=== PATIENT | female | born 1965 | race Caucasian/White ===

== ENCOUNTER 2018-07-02 10:39 | Emergency (ER) | payer BC, SELFPAY ==
[2018-07-02] MEDS ORDERED: IBUPROFEN 400 MG TAB ONE (11:17)
--- NOTE | 2018-07-02 11:35 | RAD REPORT ---
EXAM DESCRIPTION: CT - CTHCSPWOC - 07/02/2018 11:24 am CLINICAL HISTORY: Trauma, head and neck injury. PAIN COMPARISON: No comparisons TECHNIQUE: Axial 5 mm thick images of the head were obtained. Axial 2 mm thick images of the cervical spine were obtained with sagittal and coronal reconstruction images generated and reviewed. All CT scans are performed using dose optimization technique as appropriate and may include automated exposure control or mA/KV adjustment according to patient size. FINDINGS: CT HEAD WITHOUT CONTRAST: No acute hemorrhage, hydrocephalus or extra-axial collection is identified.No areas of brain edema or midline shift. The paranasal sinuses and mastoids are clear.The calvarium is intact. CT CERVICAL SPINE WITHOUT CONTRAST: No fracture or subluxation.Mild lower cervical spondylosis.No prevertebral soft tissues swelling is i dentified. IMPRESSION: No acute intracranial or cervical spine findings.
--- NOTE | 2018-07-02 12:06 | EDPHYS ---
Physician Documentation [facility] Name: Ayleen Castro Age: 52 yrs Sex: Female : 1965 Arrival Date: 07/02/2018 Time: 10:42 Bed 20 Private MD: ED Physician Darius Garcia HPI: 07/02 11:08 This 52 yrs old Female presents to ER via Ambulatory with complaints of Fall silvano Injury. 11:08 Details of fall: The patient fell from an upright position, while walking. Onset: The silvano symptoms/episode began/occurred just prior to arrival. Associated injuries: The patient sustained injury to the head, neck injury, injury to the low back, lateral aspect of right hand, decreased range of motion, painful injury. Severity of symptoms: At their worst the symptoms were moderate, in the emergency department the symptoms have resolved. The patient has not experienced similar symptoms in the past. 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 - Social history:: Smoking status: Patient/guardian denies using tobacco. - Ebola Screening: : No symptoms or risks identified at this time. - Family history:: not pertinent. ROS: 11:08 Constitutional: Negative for fever, chills, and weight loss, Eyes: Negative for injury, silvano pain, redness, and discharge, ENT: Negative for injury, pain, and discharge, Cardiovascular: Negative for chest pain, palpitations, and edema, Respiratory: Negative for shortness of breath, cough, wheezing, and pleuritic chest pain, Abdomen/GI: Negative for abdominal pain, nausea, vomiting, diarrhea, and constipation, Back: Negative for injury and pain, : Negative for injury, bleeding, discharge, and swelling, MS/Extremity: Negative for injury and deformity, Skin: Negative for injury, rash, and discoloration, Neuro: Negative for headache, weakness, numbness, tingling, and seizure, Psych: Negative for depression, anxiety, suicide ideation, homicidal ideation, and hallucinations, Allergy/Immunology: Negative for hives, rash, and allergies, Endocrine: Negative for neck swelling, polydipsia, polyuria, polyphagia, and marked weight changes, Hematologic/Lymphatic: Negative for swollen nodes, abnormal bleeding, and unusual bruising. 11:08 Neck: Positive for pain with movement, pain at rest. 11:08 Back: Positive for decreased range of motion, pain at rest, of the lumbar area. Exam: 11:08 Constitutional: This is a well developed, well nourished patient who is awake, alert, silvano and in no acute distress. Head/Face: Normocephalic, atraumatic. Eyes: Pupils equal round and reactive to light, extra-ocular motions intact. Lids and lashes normal. Conjunctiva and sclera are non-icteric and not injected. Cornea within normal limits. Periorbital areas with no swelling, redness, or edema. ENT: Nares patent. No nasal discharge, no septal abnormalities noted. Tympanic membranes are normal and external auditory canals are clear. Oropharynx with no redness, swelling, or masses, exudates, or evidence of obstruction, uvula midline. Mucous membranes moist. Chest/axilla: Normal chest wall appearance and motion. Nontender with no deformity. No lesions are appreciated. Cardiovascular: Regular rate and rhythm with a normal S1 and S2. No gallops, murmurs, or rubs. Normal PMI, no JVD. No pulse deficits. Respiratory: Lungs have equal breath sounds bilaterally, clear to auscultation and percussion. No rales, rhonchi or wheezes noted. No increased work of breathing, no retractions or nasal flaring. Abdomen/GI: Soft, non-tender, with normal bowel sounds. No distension or tympany. No guarding or rebound. No evidence of tenderness throughout. Back: No spinal tenderness. No costovertebral tenderness. Full range of motion. Female : Normal external genitalia. Skin: Warm, dry with normal turgor. Normal color with no rashes, no lesions, and no evidence of cellulitis. Neuro: Awake and alert, GCS 15, oriented to person, place, time, and situation. Cranial nerves II-XII grossly intact. Motor strength 5/5 in all extremities. Sensory grossly intact. Cerebellar exam normal. Normal gait. Psych: Awake, alert, with orientation to person, place and time. Behavior, mood, and affect are within normal limits. 11:08 Neck: External neck: is normal, C-spine: pain with rom, no point tenderness. 11:08 Back: pain, is absent, ROM is painful, normal spinal alignment noted, CVA tenderness, is absent, vertebral tenderness, is not appreciated, muscle spasm, is appreciated in the left low back and right low back, Straight leg raises: of both lower extremities does not illicit pain. Vital Signs: 10:53 BP 123 / 77; Pulse 74; Resp 16; Temp 97.8; Pulse Ox 97% on R/A; Weight 57.15 kg; Height ph 5 ft. 2 in. (157.48 cm); Pain 5/10; 11:30 BP 131 / 79; Pulse 68; Resp 18; Pulse Ox 99% on R/A; rb1 12:30 BP 146 / 86; Pulse 60; Resp 17; Pulse Ox 100% ; rb1 10:53 Body Mass Index 23.05 (57.15 kg, 157.48 cm) ph MDM: 10:45 Patient medically screened. [facility] 11:14 Data reviewed: vital signs, nurses notes, lab test result(s), radiologic studies, CT [facility] scan, plain films. 07/02 11:16 Order name: Urine Dipstick--Ancillary (enter results) 07/02 11:17 Order name: Urine Dipstick-Ancillary [facility] 07/02 11:08 Order name: CT Head C Spine; Complete Time: 12:04 [facility] 07/02 11:08 Order name: Hand Right 3 View XRAY [facility] 07/02 11:08 Order name: Lumbar Spine (3 Views) XRAY [facility] 07/02 12:05 Order name: Urine Culture [facility] 07/02 11:08 Order name: Urine Dipstick-Ancillary (obtain specimen); Complete Time: 11:17 [facility] Administered Medications: 11:17 Drug: Motrin 400 mg Route: PO; rb1 11:45 Follow up: Response: No adverse reaction rb1 12:27 Drug: Bactrim (160 mg-800 mg (DS) 1 tablet Route: PO; rb1 13:00 Follow up: Response: No adverse reaction rb1 Disposition: 07/02/18 12:06 Discharged to Home. Impression: Fall due to bumping against object, Superficial injury of head, Strain of muscle, fascia and tendon at neck level, Low back pain, Spondylolysis, cervical region, Urinary tract infection, site not specified. - Condition is Stable. - Discharge Instructions: Back Pain, Adult, Chronic Back Pain, Musculoskeletal Pain, Urinary Tract Infection, Adult, Back Injury Prevention, [id number], Cervical Sprain, [id number], Back Pain, Adult, [id number]. - Prescriptions for Motrin IB 200 mg Oral Tablet - take 2 tablet by ORAL route every 6 hours As needed as needed with food; 30 tablet. Bactrim DS 800- 160 mg Oral Tablet - take 1 tablet by ORAL route every 12 hours for 7 days; 14 tablet. - Medication Reconciliation Form, Thank You Letter, Antibiotic Education, Prescription Opioid Use form. - Follow up: Private Physician; When: 2 - 3 days; Reason: Recheck today's complaints, Continuance of care, Re-evaluation by your physician. - Problem is new. - Symptoms have improved. Signatures: Dispatcher [employer] EDDarius Rodriguez MD MD cha Hall, Patricia, RN RN Lillie Forbes RN RN rb1 Corrections: (The following items were deleted from the chart) 13:14 12:06 07/02/2018 12:06 Discharged to Home. Impression: Fall due to bumping against rb1 object; Superficial injury of head; Strain of muscle, fascia and tendon at neck level; Low back pain; Spondylolysis, cervical region; Urinary tract infection, site not specified. Condition is Stable. Discharge Instructions: Back Pain, Adult, Chronic Back Pain, Musculoskeletal Pain, Back Injury Prevention, [id number], Cervical Sprain, Ydow-tm-Oais, Back Pain, Adult, [id number]-[id number]. Prescriptions for Motrin IB 200 mg Oral Tablet - take 2 tablet by ORAL route every 6 hours As needed as needed with food; 30 tablet. and Forms are Medication Reconciliation Form, Thank You Letter, Antibiotic Education, Prescription Opioid Use. Follow up: Private Physician; When: 2 - 3 days; Reason: Recheck today's complaints, Continuance of care, Re-evaluation by your physician. Problem is new. Symptoms have improved. silvano
--- NOTE | 2018-07-02 12:06 | ER ---
Nurse's Notes [facility] Name: Ayleen Castro Age: 52 yrs Sex: Female : 1965 Arrival Date: 07/02/2018 Time: 10:42 Bed 20 Private MD: Diagnosis: Fall due to bumping against object;Superficial injury of head;Strain of muscle, fascia and tendon at neck level;Low back pain;Spondylolysis, cervical region;Urinary tract infection, site not specified Presentation: 07/02 10:51 Presenting complaint: Patient states: " I slipped and fell at work yesterday, I am ph hurting in the back of my head, my shoulders, my lower back, my R wrist and my R thumb." Pt denies LOC. Transition of care: patient was not received from another setting of care. Onset of symptoms was July 02, 2018. Risk Assessment: Do you want to hurt yourself or someone else? Patient reports no desire to harm self or others. Initial Sepsis Screen: Does the patient meet any 2 criteria? No. Patient's initial sepsis screen is negative. Does the patient have a suspected source of infection? No. Patient's initial sepsis screen is negative. Care prior to arrival: None. 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 - Social history:: Smoking status: Patient/guardian denies using tobacco. - Ebola Screening: : No symptoms or risks identified at this time. - Family history:: not pertinent. Screenin:47 Abuse screen: Denies threats or abuse. Nutritional screening: No deficits noted. rb1 Tuberculosis screening: No symptoms or risk factors identified. Fall Risk Fall in past 12 months (25 points). No secondary diagnosis (0 pts). No IV (0 pts). Ambulatory Aid- None/Bed Rest/Nurse Assist (0 pts). Gait- Normal/Bed Rest/Wheelchair (0 pts) Mental Status- Oriented to own ability (0 pts). Total Salazar Fall Scale indicates Low Risk Score (25-44 pts). Fall prevention measures have been instituted. Side Rails Up X 2 Placed close to Nursing Station 1:1 attendant Assigned to Pt. Frequent Obs/Assesments occuring As available Patient and Family Educated on Fall Prevention Program and strategies. Assessment: 10:47 General: Appears in no apparent distress. comfortable, Behavior is calm, cooperative, rb1 Pt. fell yesterday at work and hurt her back, head, and right thumb, and left hip.. Pain: Complains of pain in back, head, right thumb, and left hip Pain currently is 5 out of 10 on a pain scale. Pain began 1 day ago. Neuro: Level of Consciousness is awake, alert, obeys commands, Oriented to person, place, time, situation. Cardiovascular: Capillary refill < 3 seconds is brisk in bilateral fingers. Respiratory: Airway is patent Respiratory effort is even, unlabored, Respiratory pattern is regular, symmetrical. GI: No signs and/or symptoms were reported involving the gastrointestinal system. : No signs and/or symptoms were reported regarding the genitourinary system. Derm: Skin is pink, warm \\T\\ dry. Musculoskeletal: Range of motion: intact in all extremities. 11:47 Reassessment: Patient appears in no apparent distress at this time. No changes from rb1 previously documented assessment. 12:10 Reassessment: Discharge pending due to waiting for test results. rb1 12:45 Reassessment: Patient appears in no apparent distress at this time. Patient and/or rb1 family updated on plan of care and expected duration. Pain level reassessed. Patient is alert, oriented x 3, equal unlabored respirations, skin warm/dry/pink. Vital Signs: 10:53 BP 123 / 77; Pulse 74; Resp 16; Temp 97.8; Pulse Ox 97% on R/A; Weight 57.15 kg; Height ph 5 ft. 2 in. (157.48 cm); Pain 5/10; 11:30 BP 131 / 79; Pulse 68; Resp 18; Pulse Ox 99% on R/A; rb1 12:30 BP 146 / 86; Pulse 60; Resp 17; Pulse Ox 100% ; rb1 10:53 Body Mass Index 23.05 (57.15 kg, 157.48 cm) ph ED Course: 10:42 Patient arrived in ED. sb2 10:45 Darius Gracia MD is Attending Physician. [facility] 10:46 Lillie Gonzalez, RN is Primary Nurse. rb1 10:47 Patient has correct armband on for positive identification. Bed in low position. Call rb1 light in reach. Side rails up X 1. Pulse ox on. NIBP on. 10:53 Triage completed. ph 10:55 Arm band placed on. ph 11:24 CT Head C Spine In Process Unspecified. EDMS 11:24 CT completed. Patient tolerated procedure well. Patient moved to CT via stretcher. sj Patient moved back from CT. 12:12 X-ray completed. Patient tolerated procedure well. Patient moved to radiology via jb2 wheelchair. Patient moved back from radiology. 12:13 Hand Right 3 View XRAY In Process Unspecified. EDMS 12:13 Lumbar Spine (3 Views) XRAY In Process Unspecified. EDMS 13:05 No provider procedures requiring assistance completed. Patient did not have IV access rb1 during this emergency room visit. Administered Medications: 11:17 Drug: Motrin 400 mg Route: PO; rb1 11:45 Follow up: Response: No adverse reaction rb1 12:27 Drug: Bactrim (160 mg-800 mg (DS) 1 tablet Route: PO; rb1 13:00 Follow up: Response: No adverse reaction rb1 Outcome: 12:06 Discharge ordered by . [facility] 13:05 Discharged to home ambulatory, with friend. rb1 13:05 Condition: stable 13:05 Discharge instructions given to patient, Instructed on discharge instructions, follow up and referral plans. medication usage, Demonstrated understanding of instructions, follow-up care, medications, Prescriptions given X 2. 13:14 Patient left the ED. rb1 Signatures: Dispatcher [employer] EDLA Darius Garcia MD MD cha Buechter, Jesse jb2 Karishma Rocha Patricia, RN RN Lillie Gonzalez, RN RN [facility] Aviva Ann sb2
--- NOTE | 2018-07-02 12:26 | RAD REPORT ---
EXAM DESCRIPTION: RAD - Hand Right 3 View - 07/02/2018 12:17 pm CLINICAL HISTORY: PAIN COMPARISON: No comparisons FINDINGS: Mild radiocarpal joint arthritic changes are seen. No acute fracture or dislocation is pre sent.
[2018-07-02] MEDS ORDERED: SMZ./TMP. 800/160 MG TABLET ONE (12:28)
--- NOTE | 2018-07-02 12:30 | RAD REPORT ---
EXAM DESCRIPTION: RAD - Lumbar Spine 3 Views - 07/02/2018 12:20 pm CLINICAL HISTORY: PAIN Radiculopathy COMPARISON: LUMBAR SPINE 3 VIEWS dated 05/21/2014 FINDINGS: Vertebral body heights appear maintained. No compression fracture noted. Disc thinning is seen at L5-S1 with 3-4 mm retrolisthesis present. Mild endplate osteophyte is present throughout all visualized levels of the lumbar spine. IMPRESSION: Mild to moderate lower lumbar spondylosis. No acute lumbar spine abnormality.
[2018-07-02 16:01] LABS: Urine Blood TRACE (NEG); Urine Glucose NEGATIVE (NEG); Urine Protein NEGATIVE (NEG)
== END 2018-07-02 13:14 | disposition home or self-care (01) ==
LOC: ER 10:39
DX: S00.90XA Unspecified superficial injury of unspecified part of head, initial encounter (principal); S16.1XXA Strain of muscle, fascia and tendon at neck level, initial encounter; M47.892 Other spondylosis, cervical region; N39.0 Urinary tract infection, site not specified; F32.9 Major depressive disorder, single episode, unspecified; W18.39XA Other fall on same level, initial encounter; Y93.01 Activity, walking, marching and hiking; Y92.9 Unspecified place or not applicable
CPT/HCPCS: 70450; 72100; 72125; 81003; 87086; 87088; 99284

== ENCOUNTER 2020-01-05 19:42 | Observation (INO) | payer BC ==
[2020-01-05] MEDS ORDERED: MORPHINE 2 MG/ML SYR ONE (20:12)
[2020-01-05] MEDS ORDERED: ONDANSETRON 4 MG/2 ML VIAL ONE (20:12)
[2020-01-05] MEDS ORDERED: ASPIRIN 81 MG CHEWABLE TABLET ONE (20:12)
[2020-01-05] MEDS ORDERED: FAMOTIDINE 20 MG/2 ML VIAL IV ONE (20:12)
[2020-01-05] MEDS ORDERED: NA CHLORIDE 0.9% 2,000 ML ONE (20:12)
[2020-01-05 20:36] LABS: Absolute Lymphocytes (CBC) 2.3 K/uL (0.7-4.9); Basophils % 0.9 % (0-1.3); Hematocrit 40.8 % (36.0-45.0); Lymphocytes % 32.6 % (15.3-44.8); MPV 8.3 fL (7.6-11.3); RBC Red Blood Cell Count 4.71 M/uL (3.86-4.86)
[2020-01-05 20:42] LABS: Protime INR 0.98
[2020-01-05 20:43] LABS: Urine Blood TRACE (NEG); Urine Glucose NEGATIVE (NEG); Urine Protein NEGATIVE (NEG); Urine Specific Gravity 1.025 (1.005-1.030); Urine pH 5.5 (5.0-7.0)
--- NOTE | 2020-01-05 20:46 | RAD REPORT ---
EXAM DESCRIPTION: RAD - Chest Single View - 01/05/2020 8:41 pm CLINICAL HISTORY: CHEST PAIN Chest pain. COMPARISON: No comparisons FINDINGS: Portable technique limits examination quality. The lungs are grossly clear. The heart is normal in size. No displaced fractures. IMPRESSION: No acute intrathoracic process suspected.
[2020-01-05 20:55] LABS: ALT/SGPT 26 U/L (12-78); AST/SGOT 18 U/L (15-37); Albumin 3.9 g/dL (3.4-5.0); Alkaline Phosphatase 83 U/L (45-117); BUN Blood Urea Nitrogen 17 mg/dL (7-18); Bicarbonate 28 mmol/L (21-32); Bilirubin Direct < 0.1 mg/dL (0-0.2); Bilirubin Total 0.3 mg/dL (0.2-1.0); Glucose Level 91 mg/dL (74-106); Lipase 91 U/L (73-393); Magnesium 2.4 mg/dL (1.8-2.4); NT PRO-BNP 42 pg/mL (<125); Potassium 3.7 mmol/L (3.5-5.1); Protein, Total 7.7 g/dL (6.4-8.2); Sodium Level 139 mmol/L (136-145); Troponin (Emerg Dept Use Only) < 0.02 ng/mL (0.0-0.045)
--- NOTE | 2020-01-05 21:01 | ER ---
Nurse's Notes [facility] Name: Ayleen Castro Age: 54 yrs Sex: Female : 1965 Arrival Date: 01/05/2020 Time: 19:45 Bed 3 Private MD: Diagnosis: Chest pain, unspecified;Dyspnea;Cholelithiasis Presentation: 01/05 19:50 Acuity: VARGAS 2 sg 19:50 Presenting complaint: Patient states: Midsternal CP that began 2-4 hours ago while sg cooking dinner, reports pain is radiating to mid upper back, described as worse pain she has had, reports nausea with dizziness upon standing. Transition of care: patient was not received from another setting of care. Onset of symptoms was January 05, 2020. Risk Assessment: Do you want to hurt yourself or someone else? Patient reports no desire to harm self or others. Initial Sepsis Screen: Does the patient meet any 2 criteria? No. Patient's initial sepsis screen is negative. Does the patient have a suspected source of infection? No. Patient's initial sepsis screen is negative. Care prior to arrival: None. 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 - Coronavirus screen:: The patient has NOT traveled to [place] in the past 14 days. The patient has NOT had contact with known/suspected case of Coronavirus?. - Social history:: Smoking status: Patient denies any tobacco usage or history of. - Family history:: not pertinent. - Ebola Screening: : Patient negative for fever greater than or equal to 101.5 degrees Fahrenheit, and additional compatible Ebola Virus Disease symptoms Patient denies exposure to infectious person Patient denies travel to an Ebola-affected area in the 21 days before illness onset No symptoms or risks identified at this time. Screenin:22 Abuse screen: Denies threats or abuse. Denies injuries from another. Nutritional rv screening: No deficits noted. Tuberculosis screening: No symptoms or risk factors identified. Fall Risk None identified. Assessment: 20:19 General: Appears in no apparent distress. uncomfortable, Behavior is calm, cooperative. rv Pain:. Neuro: Level of Consciousness is awake, alert, obeys commands, Oriented to person, place, time, situation. Cardiovascular: Patient's skin is warm and dry. Respiratory: Airway is patent. GI: No signs and/or symptoms were reported involving the gastrointestinal system. : No signs and/or symptoms were reported regarding the genitourinary system. EENT: No signs and/or symptoms were reported regarding the EENT system. Derm: Skin is intact. Musculoskeletal: No signs and/or symptoms reported regarding the musculoskeletal system. 20:23 Pain: Complains of pain in chest Pain radiates to NECK Pain currently is 4 out of 10 on rv a pain scale. Quality of pain is described as pressure, Pain began suddenly. 22:30 Reassessment: Patient appears in no apparent distress at this time. Patient and/or rv family updated on plan of care and expected duration. Pain level reassessed. Patient is alert, oriented x 3, equal unlabored respirations, skin warm/dry/pink. Patient states feeling better. 22:30 Reassessment: Patient appears in no apparent distress at this time. Patient and/or rv family updated on plan of care and expected duration. Pain level reassessed. Patient is alert, oriented x 3, equal unlabored respirations, skin warm/dry/pink. DR SHAW TALKED TO THE PATIENT AND EXPLAINED THE TEST RESULTS AND PLAN OF CARE. PATIENT AGREED TO BE ADMITTED. ALER AND ORIENTED UPON TRANSFER. IV IS PATENT AND IS FLUSHING FREELY WITHOUT SIGNS OF INFILTRATION. Vital Signs: 19:50 BP 147 / 98; Pulse 98; Resp 18; Temp 97.7; Pulse Ox 100% on R/A; sg 21:00 BP 157 / 90; Pulse 92; Resp 17 S; Pulse Ox 97% on R/A; ca1 21:01 Weight 68.04 kg (R); rv 22:00 BP 141 / 80; Pulse 71; Resp 17; Pulse Ox 100% on R/A; rv 22:30 BP 131 / 81; Pulse 68; Resp 16; Pulse Ox 97% on R/A; rv 23:00 BP 118 / 73; Pulse 68; Resp 17; Pulse Ox 97% on R/A; rv 23:30 BP 110 / 91; Pulse 66; Resp 18; Pulse Ox 99% on R/A; rv ED Course: 19:45 Patient arrived in ED. jg7 19:49 EKG done, by ED staff, reviewed by Darius Shaw MD. sg 19:50 Triage completed. sg 19:50 Arm band placed on. sg 19:58 Darius Shaw MD is Attending Physician. silvano 20:04 Reed Kinney RN is Primary Nurse. rv 20:22 Patient has correct armband on for positive identification. Placed in gown. Bed in low rv position. Call light in reach. Side rails up X 1. Adult w/ patient. monitoring specialist on. Pulse ox on. NIBP on. 20:22 Inserted saline lock: 20 gauge in right antecubital area, using aseptic technique. rv Blood collected. BY [employer]. Patient maintains SpO2 saturation greater than 95% on room air. 20:59 Santy Bynum MD is Hospitalizing Provider. silvano 22:37 CT Aorta for Dissection In Process Unspecified. EDMS 22:50 CT Head Brain wo Cont In Process Unspecified. EDMS 23:47 No provider procedures requiring assistance completed. Patient admitted, IV remains in rv place. Administered Medications: 20:31 Drug: NS 0.9% 500 ml Route: IV; Rate: bolus; Site: right antecubital; rv 23:46 Follow up: IV Status: Completed infusion; IV Intake: 500ml rv 20:31 Drug: NS 0.9% 1000 ml Route: IV; Rate: 125 ml/hr; Site: right antecubital; rv 23:45 Follow up: IV Status: Completed infusion rv 20:31 Drug: morphine 2 mg {Note: RASS 0.} Route: IVP; Site: right antecubital; rv 23:45 Follow up: Response: No adverse reaction; Marked relief of symptoms; Pain is decreased; rv RASS: Alert and Calm (0) 20:31 Drug: Zofran 4 mg Route: IVP; Site: right antecubital; rv 23:45 Follow up: Response: No adverse reaction rv 20:31 Drug: Pepcid 20 mg Route: IVP; Site: right antecubital; rv 23:45 Follow up: Response: No adverse reaction rv 20:31 Drug: Aspirin 81 mg Route: PO; rv 23:45 Follow up: Response: No adverse reaction rv 21:14 Drug: Lopressor (metoprolol TARTRATE) 50 mg Route: PO; rv 23:44 Follow up: Response: No adverse reaction; Blood pressure is lowered rv 22:06 Drug: Rocephin 1 grams Route: IV; Rate: per protocol; Site: right antecubital; rv 22:26 Follow up: IV Status: Completed infusion rv 22:26 Drug: Lovenox 1 mg/kg Route: Sub-Q; Site: abdomen; rv 23:44 Follow up: Response: No adverse reaction rv Intake: 23:46 IV: 500ml; Total: 500ml. rv Outcome: 21:00 Decision to Hospitalize by Provider. silvano 23:47 Admitted to Med/surg accompanied by nurse, via wheelchair, room 212, with chart, Report rv called to [facility] HALE 23:47 Condition: good 23:47 Discharge instructions given to patient, family, Instructed on the need for admit, Demonstrated understanding of instructions. 23:47 Patient left the ED. rv Signatures: Dispatcher [employer] EDMS Johnathan Ron RN Darius Almanza MD MD cha Vicente, Ronaldo RN Ayleen Angulo RN Vicky Ordaz [id number] Corrections: (The following items were deleted from the chart) 20:01 07:49 EKG done, by ED staff, reviewed by Darius lentz 20:30 20:22 Inserted saline lock: 22 gauge in right antecubital area, using aseptic rv technique. Blood collected. BY [employer] rv
--- NOTE | 2020-01-05 21:02 | EDPHYS ---
Physician Documentation [facility] Name: Ayleen Castro Age: 54 yrs Sex: Female : 1965 Arrival Date: 01/05/2020 Time: 19:45 Bed 3 Private MD: ED Physician Darius Garcia HPI: 01/05 20:27 This 54 yrs old Female presents to ER via Ambulatory with complaints of Chest silvano Pain. 20:27 The patient or guardian reports chest pain that is located primarily in the substernal silvano area, anterior chest wall, bilaterally. Onset: just prior to arrival. The pain radiates to back. Associated signs and symptoms: Pertinent positives: lightheadedness, nausea, shortness of breath. The chest pain is described as a heaviness, a pressure. Modifying factors: The symptoms are alleviated by nothing. the symptoms are aggravated by nothing. Severity of pain: At its worst the pain was moderate in the emergency department the pain is unchanged. The patient has experienced similar episodes in the past, several times. 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 - Coronavirus screen:: The patient has NOT traveled to [place] in the past 14 days. The patient has NOT had contact with known/suspected case of Coronavirus?. - Social history:: Smoking status: Patient denies any tobacco usage or history of. - Family history:: not pertinent. - Ebola Screening: : Patient negative for fever greater than or equal to 101.5 degrees Fahrenheit, and additional compatible Ebola Virus Disease symptoms Patient denies exposure to infectious person Patient denies travel to an Ebola-affected area in the 21 days before illness onset No symptoms or risks identified at this time. ROS: 20:27 Constitutional: Negative for fever, chills, and weight loss, Eyes: Negative for injury, silvano pain, redness, and discharge, ENT: Negative for injury, pain, and discharge, Neck: Negative for injury, pain, and swelling, Respiratory: Negative for shortness of breath, cough, wheezing, and pleuritic chest pain, Abdomen/GI: Negative for abdominal pain, nausea, vomiting, diarrhea, and constipation, Back: Negative for injury and pain, : Negative for injury, bleeding, discharge, and swelling, MS/Extremity: Negative for injury and deformity, Skin: Negative for injury, rash, and discoloration, Neuro: Negative for headache, weakness, numbness, tingling, and seizure, Psych: Negative for depression, anxiety, suicide ideation, homicidal ideation, and hallucinations, Allergy/Immunology: Negative for hives, rash, and allergies, Endocrine: Negative for neck swelling, polydipsia, polyuria, polyphagia, and marked weight changes, Hematologic/Lymphatic: Negative for swollen nodes, abnormal bleeding, and unusual bruising. 20:27 Cardiovascular: Positive for chest pain, of the chest. Exam: 20:27 Constitutional: This is a well developed, well nourished patient who is awake, alert, silvano and in no acute distress. Head/Face: Normocephalic, atraumatic. Eyes: Pupils equal round and reactive to light, extra-ocular motions intact. Lids and lashes normal. Conjunctiva and sclera are non-icteric and not injected. Cornea within normal limits. Periorbital areas with no swelling, redness, or edema. ENT: Nares patent. No nasal discharge, no septal abnormalities noted. Tympanic membranes are normal and external auditory canals are clear. Oropharynx with no redness, swelling, or masses, exudates, or evidence of obstruction, uvula midline. Mucous membranes moist. Neck: Trachea midline, no thyromegaly or masses palpated, and no cervical lymphadenopathy. Supple, full range of motion without nuchal rigidity, or vertebral point tenderness. No Meningismus. Chest/axilla: Normal chest wall appearance and motion. Nontender with no deformity. No lesions are appreciated. Respiratory: Lungs have equal breath sounds bilaterally, clear to auscultation and percussion. No rales, rhonchi or wheezes noted. No increased work of breathing, no retractions or nasal flaring. Abdomen/GI: Soft, non-tender, with normal bowel sounds. No distension or tympany. No guarding or rebound. No evidence of tenderness throughout. Back: No spinal tenderness. No costovertebral tenderness. Full range of motion. Female : Normal external genitalia. Skin: Warm, dry with normal turgor. Normal color with no rashes, no lesions, and no evidence of cellulitis. MS/ Extremity: Pulses equal, no cyanosis. Neurovascular intact. Full, normal range of motion. Neuro: Awake and alert, GCS 15, oriented to person, place, time, and situation. Cranial nerves II-XII grossly intact. Motor strength 5/5 in all extremities. Sensory grossly intact. Cerebellar exam normal. Normal gait. Psych: Awake, alert, with orientation to person, place and time. Behavior, mood, and affect are within normal limits. 20:27 Cardiovascular: Rate: normal, Rhythm: regular, Pulses: Pulses are 4+ in bilateral radial, brachial, femoral, popliteal, posterior tibial and and dorsalis pedis arteries.. Heart sounds: normal, Edema: is not appreciated, JVD: is not appreciated. 20:27 Musculoskeletal/extremity: DVT Exam: No signs of deep vein thrombosis. no pain, no swelling, no tenderness, negative Homans' sign noted on exam, no appreciated bluish discoloration, no erythema, no increased warmth. Vital Signs: 19:50 BP 147 / 98; Pulse 98; Resp 18; Temp 97.7; Pulse Ox 100% on R/A; sg 21:00 BP 157 / 90; Pulse 92; Resp 17 S; Pulse Ox 97% on R/A; ca1 21:01 Weight 68.04 kg (R); rv 22:00 BP 141 / 80; Pulse 71; Resp 17; Pulse Ox 100% on R/A; rv 22:30 BP 131 / 81; Pulse 68; Resp 16; Pulse Ox 97% on R/A; rv 23:00 BP 118 / 73; Pulse 68; Resp 17; Pulse Ox 97% on R/A; rv 23:30 BP 110 / 91; Pulse 66; Resp 18; Pulse Ox 99% on R/A; rv MDM: 19:59 Patient medically screened. [facility] 20:30 Data reviewed: vital signs, nurses notes, lab test result(s), EKG, radiologic studies, [facility] CT scan, plain films. 01/05 20:01 Order name: Basic Metabolic Panel [facility] 01/05 20: Order name: CBC with Diff [facility] 01/05 20:01 Order name: LFT's [facility] 01/05 20:01 Order name: Magnesium [facility] 01/05 20:01 Order name: NT PRO-BNP 01/05 20:01 Order name: PT-INR [facility] 01/05 20:01 Order name: Troponin (emerg Dept Use Only) [facility] 01/05 20:01 Order name: Lipase [facility] 01/05 20:01 Order name: Urine Culture [facility] 01/05 20:31 Order name: Urine Dipstick--Ancillary (enter results) ar5 01/05 20:38 Order name: CBC with Automated Diff; Complete Time: 20:54 EDMS 01/05 20:43 Order name: Protime (+INR); Complete Time: 20:54 EDMS 01/05 20:46 Order name: Urine Dipstick-Ancillary; Complete Time: 20:54 ED[facility] 01/05 20:56 Order name: Basic Metabolic Panel; Complete Time: 20:58 ED[facility] 01/05 20:01 Order name: XRAY Chest (1 view) [facility] 01/05 20:01 Order name: CT Aorta for Dissection [facility] 01/05 20:27 Order name: CT Head Brain wo Cont [facility] 01/05 20:57 Order name: Liver (Hepatic) Function; Complete Time: 20:58 ED[facility] 01/05 20:57 Order name: Troponin (Emerg Dept Use Only); Complete Time: 20:58 EDMS 01/05 20:57 Order name: NT PRO-BNP; Complete Time: 20:58 EDNH 01/05 20:58 Order name: Magnesium; Complete Time: 22:28 ED01/05 20:58 Order name: Lipase; Complete Time: 22:28 ED[facility] 01/05 22:51 Order name: RAD; Complete Time: 23:19 ED[facility] 01/05 20:01 Order name: EKG; Complete Time: 20:08 [facility] 01/05 20:01 Order name: Cardiac monitoring; Complete Time: 21:20 [facility] 01/05 20:01 Order name: EKG - Nurse/Tech; Complete Time: 21:20 [facility] 01/05 20:01 Order name: IV Saline Lock; Complete Time: 21:20 [facility] 01/05 20:01 Order name: Labs collected and sent; Complete Time: 21:20 [facility] 01/05 20:01 Order name: O2 Per Protocol; Complete Time: 21:20 [facility] 01/05 20:01 Order name: O2 Sat Monitoring; Complete Time: 21:20 [facility] 01/05 20:01 Order name: Urine Dipstick-Ancillary (obtain specimen); Complete Time: 21:20 [facility] Administered Medications: 20:31 Drug: NS 0.9% 500 ml Route: IV; Rate: bolus; Site: right antecubital; rv 23:46 Follow up: IV Status: Completed infusion; IV Intake: 500ml rv 20:31 Drug: NS 0.9% 1000 ml Route: IV; Rate: 125 ml/hr; Site: right antecubital; rv 23:45 Follow up: IV Status: Completed infusion rv 20:31 Drug: morphine 2 mg {Note: RASS 0.} Route: IVP; Site: right antecubital; rv 23:45 Follow up: Response: No adverse reaction; Marked relief of symptoms; Pain is decreased; rv RASS: Alert and Calm (0) 20:31 Drug: Zofran 4 mg Route: IVP; Site: right antecubital; rv 23:45 Follow up: Response: No adverse reaction rv 20:31 Drug: Pepcid 20 mg Route: IVP; Site: right antecubital; rv 23:45 Follow up: Response: No adverse reaction rv 20:31 Drug: Aspirin 81 mg Route: PO; rv 23:45 Follow up: Response: No adverse reaction rv 21:14 Drug: Lopressor (metoprolol TARTRATE) 50 mg Route: PO; rv 23:44 Follow up: Response: No adverse reaction; Blood pressure is lowered rv 22:06 Drug: Rocephin 1 grams Route: IV; Rate: per protocol; Site: right antecubital; rv 22:26 Follow up: IV Status: Completed infusion rv 22: Drug: Lovenox 1 mg/kg Route: Sub-Q; Site: abdomen; rv 23:44 Follow up: Response: No adverse reaction rv Disposition: 01/05/20 21:00 Hospitalization ordered by Santy Bynum for Observation. Preliminary diagnosis are Chest pain, unspecified, Dyspnea, Cholelithiasis. - Bed requested for Telemetry/MedSurg (observation). - Status is Observation. rv - Condition is Fair. - Problem is new. - Symptoms have improved. Signatures: Dispatcher [employer] Johnathan Cabrera RN RN sg Anderson, Corey, MD MD cha Vicente, Ronaldo, RN RN rv Corrections: (The following items were deleted from the chart) 22:50 21:00 Hospitalization Ordered by Santy Bynum MD for Observation. Preliminary silvano diagnosis is Chest pain, unspecified; Dyspnea. Bed requested for Telemetry/MedSurg (observation). Status is Observation. Condition is Fair. Problem is new. Symptoms have improved. silvano 22:56 22:50 01/05/2020 21:00 Hospitalization Ordered by Santy Bynum MD for Observation. sg Preliminary diagnosis is Chest pain, unspecified; Dyspnea; Cholelithiasis. Bed requested for Telemetry/MedSurg (observation). Status is Observation. Condition is Fair. Problem is new. Symptoms have improved. silvano 23:47 22:56 01/05/2020 21:00 Hospitalization Ordered by Santy Bynum MD for Observation. rv Preliminary diagnosis is Chest pain, unspecified; Dyspnea; Cholelithiasis. Bed requested for Telemetry/MedSurg (observation). Status is Observation. Condition is Fair. Problem is new. Symptoms have improved. sg
[2020-01-05] MEDS ORDERED: METOPROLOL TAR 50 MG TAB ONE (21:11)
[2020-01-05] MEDS ORDERED: ENOXAPARIN 80 MG/0.8 ML SQ ONE (21:12)
[2020-01-05] MEDS ORDERED: CEFTRIAXONE/SWI 1gm 1 GM/10 ML SYR ONE (21:47)
[2020-01-05] MEDS ORDERED: ACETAMINOPHEN 500 MG TAB PO PRN (22:07)
[2020-01-05] MEDS ORDERED: MORPHINE 4 MG/ML SYR IV PRN (22:07)
[2020-01-05] MEDS ORDERED: ALPRAZOLAM 0.25 MG TABLET PO PRN (22:07)
[2020-01-06 01:25] VITALS: O2SAT 97; BMI 26.5
[2020-01-06 06:16] LABS: Absolute Lymphocytes (CBC) 1.9 K/uL (0.7-4.9); Basophils % 1.2 % (0-1.3); Hematocrit 38.5 % (36.0-45.0); Lymphocytes % 35.1 % (15.3-44.8); MPV 8.4 fL (7.6-11.3); RBC Red Blood Cell Count 4.43 M/uL (3.86-4.86)
[2020-01-06 06:46] LABS: BUN Blood Urea Nitrogen 11 mg/dL (7-18); Bicarbonate 27 mmol/L (21-32); Glucose Level 92 mg/dL (74-106); HDL Cholesterol 48 mg/dL (40-60); LDL Cholesterol, Calculated 117 (<130); Potassium 4.1 mmol/L (3.5-5.1); Sodium Level 142 mmol/L (136-145); Troponin I < 0.02 ng/mL (0.0-0.045)
[2020-01-06] MEDS ORDERED: INFLUENZA VACCINE (for 3y+) 0.5 ML DOSE IMVAC ONE (08:00)
--- NOTE | 2020-01-06 08:42 | EKG ---
Test Date: 2020-01-05 Test Time: 19:48:41 Damascener: SWG MEASUREMENT RESULTS: Intervals: Rate: 80 MD: 154 QRSD: 82 QT: 394 QTc: 454 [place]: P: 48 MD: 154 QRS: 10 T: 35 INTERPRETIVE STATEMENTS: Normal sinus rhythm Cannot rule out Anterior infarct, age undetermined Abnormal ECG No previous ECG available for comparison Electronically Signed On 01-06-20 08:41:04 GREENHOUSE OR NURSERY TRANSPLANTER by Trevor Caruso
[2020-01-06] MEDS ORDERED: ASPIRIN EC 81 MG TAB PO SCH (09:00)
[2020-01-06] MEDS ORDERED: ENOXAPARIN 40 MG/0.4 ML SQ SCH (09:00)
[2020-01-06] MEDS ORDERED: MANGANESE PO SCH (09:00)
[2020-01-06] MEDS ORDERED: METOPROLOL TAR 50 MG TAB PO SCH (09:00)
[2020-01-06] MEDS ORDERED: CHONDRO SU A PO SCH (09:00)
[2020-01-06] MEDS ORDERED: BUPROPION HCL XL 150 MG TAB PO SCH (09:00)
[2020-01-06] MEDS ORDERED: VENLAFAXINE HCL XR 75 MG CAP PO SCH (09:00)
[2020-01-06] MEDS ORDERED: VIT C PO SCH (09:00)
--- NOTE | 2020-01-06 10:35 | RAD REPORT ---
EXAM DESCRIPTION: Head Brain Wo Cont CLINICAL HISTORY: 54-year-old female with headache. COMPARISON: None. TECHNIQUE: CT brain without contrast. This exam was performed according to our departmental dose opt imization program which includes use of automated exposure control, adjustment of the mA and/or kV ac cording to patient size and/or use of iterative reconstruction technique. FINDINGS: The ventricles, sulci, and cisterns are within normal limits. The cartagena-white matter diff erentiation is preserved. There is no mass effect, midline shift, intra- or extra-axial fluid colle ction/acute hemorrhage. The osseous structures are unremarkable. The paranasal sinuses and mastoi d air cells are clear. IMPRESSION: No acute intracranial abnormalities. Electronically signed by: Ara Lauren MD 01/05/2020 10:10 PM CLEAN ROOM ASSEMBLER Due to temporary technical issues with the PACS/Fluency reporting system, reports are being signed b y the in house radiologist as a courtesy to ensure prompt reporting. The interpreting radiologist is fully responsible for the content of the report.
--- NOTE | 2020-01-06 10:37 | RAD REPORT ---
EXAM DESCRIPTION: Angio Aorta For Dissection CLINICAL HISTORY: 54-year-old female with chest pain. COMPARISON: None. TECHNIQUE: CT angiography of the chest, abdomen and pelvis was performed following intravenous admin istration of contrast. Oral contrast was not administered. MIP reformatted images were created. This Multiplanar reformatted images were provided. This exam was performed according to our departmental d ose optimization program which includes use of automated exposure control, adjustment of the mA and/o r kV according to patient size and/or use of iterative reconstruction technique. FINDINGS: CT angiography: Diagnostic CT chest angiography limited by motion from Nongated cardiac te chnique although without specific findings to suggest acute aortic injury. Abdomen and pelvis: The liver, gallbladder, pancreas, spleen, bilateral kidneys and bilateral adrenal glands are within normal limits. Frontal focus of increased density present within the proximal gall bladder with associated adjacent focus of calcification measuring 9 mm suggestive of cholelithiasis. The vessels are patent and normal in caliber. No abdominopelvic lymph nodes are noted to be pathologically enlarged by CT measurement criteria. The bowel is within normal limits without abnormal bowel wall thickness or bowel dilation. Large volu me of fecal content present throughout the large bowel raising the question of fecal stasis or consti pation. No free air. No free abdominopelvic fluid collections. The appendix is within normal limits. The osseous structures are within normal limits. IMPRESSION: 1. Diagnostic chest angiography without findings to suggest acute aortic injury. 2. The lungs are clear without focal opacity, pleural effusion or pneumothorax. 3. No specific findings are noted to suggest etiology of the patient's chest pain and shortness of br eath. 4. No specific acute intra-abdominal findings are noted to suggest etiology of the patient's abdomina l pain. 5. Cholelithiasis. 6. Large volume of fecal content present throughout the large bowel raising the question of fecal sta sis or constipation. Electronically signed by: Ara Lauren MD 01/05/2020 10:10 PM MANAGER DATABASE Due to temporary technical issues with the PACS/Fluency reporting system, reports are being signed b y the in house radiologist as a courtesy to ensure prompt reporting. The interpreting radiologist is fully responsible for the content of the report.
--- NOTE | 2020-01-06 11:26 | P.DS ---
Admission Date: 01/05/20 Discharge Date: 01/06/20 Primary Care Provider: Dr. Álvarez Disposition: ROUTINE DISCHARGE Discharge Condition: GOOD Reason for Admission: chest pain Consultations: Cardiology-Dr. Caruso Procedures: CT Head: FINDINGS: The ventricles, sulci, and cisterns are within normal limits. The cartagena-white matter differentiation is preserved. There is no mass effect, midline shift, intra- or extra-axial fluid collection/acute hemorrhage. The osseous structures are unremarkable. The paranasal sinuses and mastoid air cells are clear. IMPRESSION: No acute intracranial abnormalities. CT Dissection: FINDINGS: CT angiography: Diagnostic CT chest angiography limited by motion from Nongated cardiac technique although without specific findings to suggest acute aortic injury. Abdomen and pelvis: The liver, gallbladder, pancreas, spleen, bilateral kidneys and bilateral adrenal glands are within normal limits. Frontal focus of increased density present within the proximal gallbladder with associated adjacent focus of calcification measuring 9 mm suggestive of cholelithiasis. The vessels are patent and normal in caliber. No abdominopelvic lymph nodes are noted to be pathologically enlarged by CT measurement criteria. The bowel is within normal limits without abnormal bowel wall thickness or bowel dilation. Large volume of fecal content present throughout the large bowel raising the question of fecal stasis or constipation. No free air. No free abdominopelvic fluid collections. The appendix is within normal limits. The osseous structures are within normal limits. IMPRESSION: 1. Diagnostic chest angiography without findings to suggest acute aortic injury. 2. The lungs are clear without focal opacity, pleural effusion or pneumothorax. 3. No specific findings are noted to suggest etiology of the patient's chest pain and shortness of breath. 4. No specific acute intra-abdominal findings are noted to suggest etiology of the patient's abdominal pain. 5. Cholelithiasis. 6. Large volume of fecal content present throughout the large bowel raising the question of fecal stasis or constipation. Medical Problem List: Chest pain, atypical, likely GERD Depression Cholelithiasis Chronic constipation Brief History of Present Illness: 54-year-old female presented to the emergency room with chest pain. Patient with underlying depression [place] patient had substernal chest pain with nausea. Patient came to the ER for further evaluation. Workup unremarkable. Hospital Course: Patient presented with chest pain. Patient was evaluated in the hospital. Cardiac enzymes unremarkable. EKG unremarkable. Patient seen and evaluated by Cardiology. Atypical chest pain was likely. Cardiology felt this was likely GERD related. At discharge she will continue with Pepcid 20 mg 1 pill twice daily. Recommend to follow up with cardiology as an outpatient for outpatient stress test to further evaluate. If workup unremarkable patient would benefit with GI evaluation as an outpatient. Patient with underlying depression. Patient may continue with her medication. Patient had CT scan showing cholelithiasis. This appears chronic. Patient may benefit with surgical evaluation as an outpatient if patient has right upper quadrant abdominal pain in the future. Dietary changes addressed. Vital Signs/Physical Exam: Temp Pulse Resp BP Pulse Ox 98.3 F 101 H 18 92/52 L 95 01/06/20 08:00 01/06/20 08:00 01/06/20 08:00 01/06/20 08:00 01/06/20 08:00 General: Alert, In no apparent distress, Oriented x3, Cooperative HEENT: Atraumatic Neck: Supple Respiratory: Clear to auscultation bilaterally, Normal air movement Cardiovascular: Normal pulses, Regular rate/rhythm Gastrointestinal: Normal bowel sounds, Soft and benign, Non-distended, No tenderness, No masses, No rebound, No guarding Musculoskeletal: No erythema, No tenderness, No warmth Integumentary: No tenderness/swelling, No erythema, No warmth, No cyanosis Neurological: Normal speech, Normal strength at 5/5 x4 extr, Normal tone, Normal affect Laboratory Data at Discharge: WBC 5.5 K/uL (4.3-10.9) D 01/06/20 05:52 Hgb 13.1 g/dL (12.0-15.0) 01/06/20 05:52 Hct 38.5 % (36.0-45.0) 01/06/20 05:52 Plt Count 220 K/uL (152-406) 01/06/20 05:52 PT 11.6 SECONDS (9.5-12.5) 01/05/20 20:15 INR 0.98 01/05/20 20:15 Sodium 142 mmol/L (136-145) 01/06/20 05:52 Potassium 4.1 mmol/L (3.5-5.1) 01/06/20 05:52 BUN 11 mg/dL (7-18) 01/06/20 05:52 Creatinine 0.65 mg/dL (0.55-1.3) 01/06/20 05:52 Glucose 92 mg/dL (74-106) 01/06/20 05:52 Magnesium 2.4 mg/dL (1.8-2.4) 01/05/20 20:15 Total Bilirubin 0.3 mg/dL (0.2-1.0) 01/05/20 20:15 AST 18 U/L (15-37) 01/05/20 20:15 ALT 26 U/L (12-78) 01/05/20 20:15 Alkaline Phosphatase 83 U/L (45-117) 01/05/20 20:15 Troponin I < 0.02 ng/mL (0.0-0.045) 01/06/20 05:52 Triglycerides Cancelled 01/06/20 06:00 Cholesterol Cancelled 01/06/20 06:00 HDL Cholesterol Cancelled 01/06/20 06:00 Cholesterol/HDL Ratio Cancelled 01/06/20 06:00 Lipase 91 U/L (73-393) 01/05/20 20:15 Home Medications: Bimatoprost [Lumigan Opthalmic Drops*] 1 drop EACH EYE BEDTIME 01/06/20 Bupropion *Xl* [Wellbutrin XL*] 150 mg PO DAILY 01/06/20 Chondro Quiroz A/Vit C/Manganese [Chondroitin Sulf 400 mg Cap] 1 cap PO DAILY Famotidine [Pepcid AC] 20 mg PO BID #60 tablet 01/06/20 Venlafaxine HCl [Venlafaxine HCl ER] 75 mg PO DAILY 01/06/20 New Medications: Famotidine [Pepcid AC] 20 mg PO BID #60 tablet Patient Discharge Instructions: 1. Recommend follow up with PCP in 1 week to follow up this hospitalization. 2. Patient presented with chest pain. Patient was evaluated in the hospital. Cardiac enzymes unremarkable. EKG unremarkable. Patient seen and evaluated by Cardiology. Atypical chest pain was likely. Cardiology felt this was likely GERD related. At discharge she will continue with Pepcid 20 mg 1 pill twice daily. Recommend to follow up with cardiology as an outpatient for outpatient stress test to further evaluate. If workup unremarkable patient would benefit with GI evaluation as an outpatient. 3. Patient with underlying depression. Patient may continue with her medication. 4. Patient had CT scan showing cholelithiasis. This appears chronic. Patient may benefit with surgical evaluation as an outpatient if patient has right upper quadrant abdominal pain in the future. Dietary changes addressed. Diet: AHA Activity: Ad coco Time spent managing pt's care (in minutes): 55
--- NOTE | 2020-01-06 11:52 | CON ---
She was admitted by Dr. Alva on 01/05/2020 with chest pain. History Of Present Illness: Ms. Castro is a 54-year-old woman who has no past cardiac history. Odell haro has a history of depression, for which she takes Cymbalta and Wellbutrin. She has a positive famil y history of heart disease. She was sitting down to eat and developed this severe substernal chest p ressure that she describes as crushing with nausea. No vomiting. No diaphoresis. No PND, orthopnea , pedal edema, palpitations, or syncope. The pain was nonexertional and was not radiating. Lasted f or about an hour or two. She still had a normal EKG, normal x-ray, normal troponin and normal BNP. Past Medical History: As stated above. Allergies: NONE. Review of Systems: Negative. Social History: Negative. Family History: Positive for heart disease. Medications: Include Cymbalta and Wellbutrin. Physical Examination: Vital Signs: Stable. Afebrile. HEENT: Negative. Neck: Supple with no bruit. Chest: Clear. Cardiac: Revealed regular rhythm and rate. No murmur, gallops or rubs. Abdomen: Benign. Extremities: Revealed no clubbing, cyanosis, or edema. Diagnostic Data: Normal. Impression And Plan: Atypical chest pain, most likely gastroesophageal reflux disease or esophageal spasm. Echocardiogram is pending. If this is normal, I can send her home and I will set her up to h ave an outpatient stress test. Further she has an outpatient Cardiolite. I will discuss the case fu rther with Dr. Alva after the echocardiogram. Meanwhile, I think sending her home on a proton pump inhibitor is reasonable. MO/CARLOS Voice ID: [id number] Report ID: [id number]
[2020-01-06 14:27] VITALS: BP 111/55; TEMP 98
--- NOTE | 2020-01-06 15:26 | ECHO ---
HEIGHT: 5 ft 3 in WEIGHT: 150 lb 0 oz DATE OF STUDY: 01/06/[address]: Santy Bynum MD 2-DIMENSIONAL: YES M.MODE: YES DOPPLER: YES COLOR FLOW: YES TDS: PORTABLE: DEFINITY: BUBBLE STUDY: DIAGNOSIS: CHEST PAIN CARDIAC HISTORY: CATHERIZATION: NO SURGERY: NO PROSTHETIC VALVE: NO PACEMAKER: NO MEASUREMENTS (cm) DIASTOLIC (NORMALS) SYSTOLIC (NORMALS) IVSd 0.8 (0.6-1.2) LA Diam 3.1 (1.9-4.0) LVEF 64% LVIDd 4.3 (3.5-5.7) LVIDs 2.8 (2.0-3.5) %FS 35% LVPWd 0.9 (0.6-1.2) Ao Diam 2.8 (2.0-3.7) 2 DIMENSIONAL ASSESSMENT: RIGHT ATRIUM: NORMAL LEFT ATRIUM: NORMAL RIGHT VENTRICLE: NORMAL LEFT VENTRICLE: NORMAL TRICUSPID VALVE: NORMAL MITRAL VALVE: NORMAL PULMONIC VALVE: NORMAL AORTIC VALVE: NORMAL PERICARDIAL EFFUSION: NONE AORTIC ROOT: NORMAL LEFT VENTRICULAR WALL MOTION: NORMAL DOPPLER/COLOR FLOW: NORMAL COMMENTS: NORMAL 2-DIMENSIONAL ECHOCARDIOGRAM WITH DOPPLER. NO MITRAL VALVE PROLAPSE. NO EFFUSION. TECHNOLOGIST: MADISON JACK
--- NOTE | 2020-01-06 17:08 | P.HP ---
Certification for Inpatient Patient admitted to: Observation With expected LOS: <2 Midnights Patient will require the following post-hospital care: None Practitioner: I am a practitioner with admitting privileges, knowledge of patient current condition, hospital course, and medical plan of care. Services: Services provided to patient in accordance with Admission requirements found in Title 42 Section 412.3 of the Code of Federal Regulations Patient History Date of Service: 01/05/20 Reason for admission: CHEST PAIN RULE OUT ACUTE CORONARY SYNDROME History of Present Illness: PATIENT IS A 54-YEAR-OLD FEMALE CAME TO HOSPITAL CHEST DISCOMFORT. PAIN WAS MAINLY THE STERNAL REGION AND RADIATED TO HER NECK. SHE HAS NEVER HAD SUCH SEVERE PAIN IN HER LIFE. SHE CAME TO THE HOSPITAL FOR FURTHER EVALUATION. IN THE ER HER TROPONINS AND EKG WERE NEGATIVE. SHE HAS A FAMILY HISTORY OF CARDIAC DISEASE. SHE DENIES SMOKING AND NO SIGNIFICANT HISTORY OF DIABETES. HER SYMPTOMS HAVE IMPROVED. SHE DENIES ANY OTHER ISSUES WITH CARDIAC DISEASE. SHE DID HAVE GALLSTONES ON HER IMAGING STUDIES. THIS CAN BE FURTHER EVALUATED AN OUTPATIENT. AT THIS TIME SHE IS DOING WELL AND WILL RULE HER OUT FOR ACUTE CORONARY SYNDROME. IF HER WORKUP IS NEGATIVE SHE SHOULD BE ABLE TO DISCHARGE HOME. Allergies No Known Allergies Allergy (Unverified 07/02/18 13:18) Home Medications: Bimatoprost [Lumigan Opthalmic Drops*] 1 drop EACH EYE BEDTIME 01/06/20 Bupropion *Xl* [Wellbutrin XL*] 150 mg PO DAILY 01/06/20 Chondro Quiroz A/Vit C/Manganese [Chondroitin Sulf 400 mg Cap] 1 cap PO DAILY Famotidine [Pepcid AC] 20 mg PO BID #60 tablet 01/06/20 Venlafaxine HCl [Venlafaxine HCl ER] 75 mg PO DAILY 01/06/20 - Past Medical/Surgical History Has patient received pneumonia vaccine in the past: No Diabetic: No -: MRSA 5 yrs ago -: depression -: cataracts bilat eyes -: eczema -: glaucoma bilat eyes -: headaches -: L knee surgery -: bilateral carpal tunnel sx - Family History Mother Medical History: GI disease, Cancer Notes: colon ca. diverticulitis. Father Medical History: Heart disease, Hypertension, Diabetes, Other (see notes) Notes: LA. degenerative eye disease Brother Medical History: Diabetes - Social History Smoking Status: Former smoker Alcohol use: Yes CD- Drugs: No Caffeine use: Yes Place of Residence: Home Review of Systems 10-point ROS is otherwise unremarkable Physical Examination - Vital Signs Temperature: 98.0 F Blood Pressure: 111/55 Pulse: 52 Respirations: 18 Pulse Ox (%): 95 - Physical Exam General: Alert, In no apparent distress, Oriented x3 HEENT: Atraumatic, PERRLA, Mucous membr. moist/pink, EOMI, Sclerae nonicteric Neck: Supple, 2+ carotid pulse no bruit, No LAD, Without JVD or thyroid abnormality Respiratory: Clear to auscultation bilaterally, Normal air movement Cardiovascular: Regular rate/rhythm, Normal S1 S2, No murmurs Gastrointestinal: Normal bowel sounds, Soft and benign, Non-distended, No tenderness Musculoskeletal: No clubbing, No swelling, No tenderness Integumentary: No rashes Neurological: Normal gait, Normal speech, Normal strength at 5/5 x4 extr, Normal tone, Sensation intact, Cranial nerves 3-12 intact, Normal affect Lymphatics: No axilla or inguinal lymphadenopathy - Studies Laboratory Data (last 24 hrs) 01/05/20 20:15: PT 11.6, INR 0.98 01/05/20 20:15: WBC 7.1, Hgb 13.8, Hct 40.8, Plt Count 264 01/05/20 20:15: Sodium 139, Potassium 3.7, BUN 17, Creatinine 0.65, Glucose 91, Magnesium 2.4, Total Bilirubin 0.3, AST 18, ALT 26, Alkaline Phosphatase 83, Lipase 91 Assessment & Plan - Problems (Diagnosis) (1) Chest pain, rule out acute myocardial infarction Status: Acute (2) Cholelithiasis Status: Acute - Plan 1. SERIAL TROPONINS AND EKG 2. CARDIOLOGY CONSULTATION 3. ECHOCARDIOGRAM AND INPATIENT STRESS TEST(PENDING CARDIOLOGY EVALUATION) 4. ANTI-PLATELET THERAPY, ANTI COAGULATION, BETA-SANDRITA, STATIN, AND O2 NEEDED 5. IV MORPHINE FOR PAIN 6. NITRO P.R.N. Discharge Plan: Home Plan to discharge in: 24 Hours - Advance Directives Does patient have a Living Will: No Does patient have a Durable POA for Healthcare: No - Code Status/Comfort Care Code Status Assessed: Yes Code Status: Full Code Critical Care: No Time Spent Managing PTS Care (In Minutes): 45
[2020-01-06] MEDS ORDERED: BIMATOPROST OPHTH DROPS/2.5 ML BTL OPTH SCH (21:00)
== END 2020-01-06 13:45 | disposition home or self-care (01) ==
LOC: ER 19:42 → ERHOLD 22:41 → 2ND 23:44
PROVIDERS: ADMIT Family Medicine; ATTEND Family Medicine
DX: R07.89 Other chest pain (principal); K80.20 Calculus of gallbladder without cholecystitis without obstruction; K59.09 Other constipation; Z23 Encounter for immunization; Z82.49 Family history of ischemic heart disease and other diseases of the circulatory system; F32.9 Major depressive disorder, single episode, unspecified; R94.31 Abnormal electrocardiogram [ECG] [EKG]; Z79.899 Other long term (current) drug therapy; Z87.891 Personal history of nicotine dependence; Z86.14 Personal history of Methicillin resistant Staphylococcus aureus infection
CPT/HCPCS: 36415; 70450; 71045; 71275; 74175; 80048; 80061; 80076; 81003; 83690; 83735; 83880; 84484; 85025; 85610; 87086; 87088; 90471; 93005; 93306; 96361; 96365; 96372; 96375; 99285; G0378; J0696; J1650; J2270; J2405; J7030; Q2035; Q9967

== ENCOUNTER 2022-01-25 12:43 | Emergency (ER) | payer BC ==
--- OUTSIDE RECORDS SUMMARY | 2022-01-25 12:46 | XMS REPORT | Continuity of Care Document ---
:1965 Author Organization [facility] t Address [address] [place] [address] [address]. [address] [place] [address] Care Team Providers Name Role Phone PHILLIP Attending Clinician Unavailable Tierney GARCIA, Gene Attending Clinician Payers Payer Name Policy Type Policy Number Effective Date [facility] Date [id number] 2008 00:00:00 OUT OF STATE Problems Condition Condition Condition Status Onset Resolution Last Treating Co mments Source Name Details Category Date Date Treatment Clinician Date Screening Screening Disease Active Overview: [facility] for for 5- Added ity of colorectal colorectal 00:00: automatic [place] cancer cancer 00 ally from Medical request Branch for surgery [id number] Family Family Disease [facility] of [facility] of 5-09 Added it y of colon colon 00:00: automatic [place] cancer in cancer in 00 ally from Isai guerin mother mother request Branch for surgery [id number] Allergies, Adverse Reactions, Alerts Allergy Allergy Status Severity Reaction(s) Onset Inactive Treating Comm ents Source Name Type Date Date Clinician NO KNOWN Drug Active Univers ALLERGIE Class ity of S [facility] Social History Social Habit Start Date Stop Date Quantity Comments Source Sex Assigned At [facility] Medical Branch Alcohol intake 2019-08-19 2019-08-19 [facility] 00:00:00 00:00:00 [facility] [place] [facility] Alcohol Comment 2019-03-07 2019-03-07 soccially [facility] 00:00:00 00:00:00 [facility] [place] [facility] Smoking Status Start Date Stop Date Source Former smoker 2019-08-19 00:00:00 2019-08-19 00:00:00 [facility] Medications Ordered Filled Start Stop Current Ordering Indication Dosage Frequency Signature Comments Components Source Medication Medication Date Date Medication? Clinician (SIG) Name Name DULOXETINE Yes [id number] TAKE ONE Univers 30 mg 4-28 CAPSULE BY ity of capsule 00:00: MOUTH [place] 00 EVERY DAY Medical Branch DULoxetine 2018-11 2020- No [id number] 30mg Take 1 [facility] 30 mg 0-08 04-28 capsule by ity of capsule 00:00: 00:00 mouth [place] 00 :00 daily. Medical Branch DULoxetine Yes 30mg Take 1 Unive rs 30 mg 9-18 capsule by ity of capsule 00:00: mouth [place] 00 daily. Medical Branch DULoxetine 2019- No 30mg Take 1 Univ ers 30 mg 9-18 -18 capsule by ity of capsule 00:00: 00:00 mouth [place] 00 :00 daily. Medical Branch DULOXETINE 2018- No TAKE 1 Univ ers 30 mg 6-12 -18 CAPSULE ity of capsule 00:00: 00:00 DAILY [place] 00 :00 Medical Branch peg-electro Yes Take as Uni vers lyte soln 5-08 directed ity of 236-22.74-6 00:00: [place] .74 -5.86 00 Medical gram Branch solution peg-electro Yes Take as Uni vers lyte soln 5-08 directed ity of 236-22.74-6 00:00: [place] .74 -5.86 00 [facility] gram [place] solution cetirizine Yes Take by Uni vers HCl (ZYRTEC 4-26 mouth. ity of ORAL) 18:41: [address] Branch cetirizine Yes Take by Uni vers HCl (ZYRTEC 4-26 mouth. ity of ORAL) 18:41: [place] [address] Medical Branch bimatoprost Yes 1[drp] Place 1 U nivers (LUMIGAN) 4-26 Drop in ity of 0.01 % 18:39: each eye [place] ophthalmic 42 daily. Medical drops Branch bimatoprost Yes 1[drp] Place 1 U nivers (LUMIGAN) 4-26 Drop in ity of 0.01 % 18:39: each eye [place] ophthalmic 42 daily. Medical drops Branch conjugated Yes [id number] 0.5 mg PV Univers estrogens 4-26 qhs x 2 ity of 0.625 00:00: wks, then [place] mg/gram 00 0.5 mg PV Medical vaginal 2x/wk Branch cream conjugated 2018- Yes [id number] 0.5 mg PV Univers estrogens 4-26 qhs x 2 ity of 0.625 00:00: wks, then [place] mg/gram 00 0.5 mg PV Medical vaginal 2x/wk Branch cream doxepin 5 % 2018- Yes APPLY TO Un mahogany cream 4-06 ITCHY ity of 00:00: AREAS BID. [place] 00 USE ONCE A Medical DAY IF PT Branch BECOMES DROWSY. doxepin 5 % 2018- Yes APPLY TO Un mahogany cream 4-06 ITCHY ity of 00:00: AREAS BID. [place] 00 USE ONCE A Medical DAY IF PT Branch BECOMES DROWSY. BIAFINE 2018- Yes APPLY TO Univer s emulsion 4-05 AFFECTED ity of 00:00: WOUND AREA [place] 00 ONCE A Medical DAY. Branch BIAFINE 2018- Yes APPLY TO Univer s emulsion 4-05 AFFECTED ity of 00:00: WOUND AREA [place] 00 ONCE A Medical DAY. Branch DULoxetine 2019- No 30mg Take 1 Univ ers 30 mg 3-25 07-30 capsule by ity of capsule 00:00: 00:00 mouth [place] 00 :00 daily. [facility] Branch buPROPion Yes Univers SR 150 mg 6-07 ity of SR tablet 00:00: [place] 00 [facility] Branch buPROPion 2017-0 Yes Univers SR 150 mg 6-07 ity of SR tablet 00:00: [place] 00 Medical Branch Procedures This patient has no known procedures. Encounters Start End Encounter Admission Attending Care Care Encounter Source Date/Time Date/Time Type Type Clinicians Facility Department ID 2021-07-19 2021-07-19 Outpatient R [facility] [id number] Univers 09:00:00 09:00:00 [id number] ity of [facility] 2021-07-16 2021-07-16 Outpatient R [facility] [id number] Univers 09:25:00 09:25:00 [id number] ity of [facility] 2020-03-09 2020-03-09 Outpatient R PHILLIP [facility] [id number] Univers 08:00:00 08:00:00 ARRON ity of [facility] 2020-03-09 2020-03-09 Marybeth Monet [facility] [id number] Univers 00:00:00 00:00:00 Armen Reyes [id number] ity [place] [id number] [place] [phone] [place] [id number] Branch [facility] 2019-07-30 2019-07-30 [facility] [id number] Univers 00:00:00 00:00:00 Armen Reyes [id number] ity [place] [id number] [place] [phone] [place] [id number] Branch [facility] Results This patient has no known results.
--- NOTE | 2022-01-25 13:53 | ER ---
Nurse's Notes [facility] Name: Ayleen Castro Age: 56 yrs Sex: Female : 1965 Arrival Date: 01/25/2022 Time: 12:45 Bed 2 Private MD: Demetria Álvarez H Diagnosis: skin irritation;Dermabond adhered to skin;right hand pain Presentation: 01/25 12:52 Chief complaint: Patient states: "Today at surgery, I grabbed surgical glue and got all ag7 over my right hand". Coronavirus screen: Client denies travel out of the [place] in the last 14 days. At this time, the client does not indicate any symptoms associated with coronavirus-19. Ebola Screen: No symptoms or risks identified at this time. Initial Sepsis Screen: Does the patient meet any 2 criteria? No. Patient's initial sepsis screen is negative. Does the patient have a suspected source of infection? No. Patient's initial sepsis screen is negative. Risk Assessment: Do you want to hurt yourself or someone else? Patient reports no desire to harm self or others. Onset of symptoms was January 25, 2022. 12:52 Method Of Arrival: Ambulatory ag7 12:52 Acuity: VARGAS 4 ag7 Triage Assessment: 14:05 Respiratory: Airway is patent. Injury Description: glue. ap3 Historical: - Allergies: 12:55 No Known Allergies; ag7 - Home Meds: 12:55 Wellbutrin Oral [Active]; ag7 - PMHx: 12:55 Depression; ag7 - PSHx: 12:55 left knee meniscus repair; carpal tunnel surgery; ag7 - Immunization history:: Client reports receiving the 2nd dose of the Covid vaccine, Flu vaccine is not up to date. Patient has never been vaccinated. - Social history:: Smoking status: Patient denies any tobacco usage or history of. Screenin:01 Abuse screen: Denies threats or abuse. Nutritional screening: No deficits noted. tw2 Tuberculosis screening: No symptoms or risk factors identified. Tuberculosis screening: No symptoms or risk factors identified. Fall Risk None identified. Assessment: 13:14 Reassessment: patient provided with bedside commode. ap3 13:14 Reassessment: copious amounts of Vaseline ointment applied to RIGHT hand. tw2 13:45 Reassessment: pt tolerated well. hand cleaned with dry gauze. minimal amount of tw2 dermabond removed with cleaning. pt able to move fingers independently. in finger webbing noted heavy amounts of dried crusted dermabond. provider notified. no further orders at this time. 14:05 Pain: Denies pain. Derm: dried glue on patients right hand. ap3 Vital Signs: 12:52 BP 154 / 89; Pulse 82; Resp 16 S; Temp 97.0(O); Pulse Ox 100% on R/A; Weight 65.77 kg ag7 (R); Height 5 ft. 2 in. (157.48 cm) (R); Pain 5/10; 12:52 Body Mass Index 26.52 (65.77 kg, 157.48 cm) ag7 ED Course: 12:45 Patient arrived in ED. mr 12:45 Demetria Álvarez DO is Private Physician. mr 12:47 Luis Heck DO is Attending Physician. ms3 12:52 Bed in low position. Call light in reach. Pulse ox on. NIBP on. tw2 12:55 Triage completed. ag7 12:56 Arm band placed on left wrist. ag7 13:01 Kelly Schwartz, ALEXIA is Primary Nurse. tw2 13:50 Demetria Álvarez DO is Referral Physician. ms3 14:05 No provider procedures requiring assistance completed. Patient did not have IV access ap3 during this emergency room visit. Administered Medications: No medications were administered Outcome: 13:52 Discharge ordered by MD. ms3 14:05 Discharged to home ambulatory. ap3 14:05 Condition: good 14:05 Discharge instructions given to patient, Instructed on discharge instructions, follow up and referral plans. wound care, Demonstrated understanding of instructions, follow-up care, wound care. 14:06 Patient left the ED. ap3 Signatures: Shellie Hansen mr Kelly Schwartz RN RN tw2 Isabella Shetty RN RN ap3 Luis Heck DO DO ms3 Sima Iyer RN RN ag7
--- NOTE | 2022-01-25 14:07 | EDPHYS ---
Physician Documentation [facility] Name: Ayleen Castro Age: 56 yrs Sex: Female : 1965 Arrival Date: 01/25/2022 Time: 12:45 Bed 2 Private MD: Demetria Álvarez H ED Physician Luis Heck HPI: 01/25 13:53 This 56 yrs old Female presents to ER via Ambulatory with complaints of Chemical Burn. ms3 13:53 The patient presents with a burn as a result of tissue adhesive, at work, is located on ms3 the right hand. Onset: The symptoms/episode began/occurred 1.5 hour(s) ago. 56-year-old female presents for right hand covered in tissue adhesive after the bottle opened on her hand while at work. Patient states she is having 3/10 burning right hand pain. Patient denies alleviating or inciting factors.. Historical: - Allergies: 12:55 No Known Allergies; ag7 - Home Meds: 12:55 Wellbutrin Oral [Active]; ag7 - PMHx: 12:55 Depression; ag7 - PSHx: 12:55 left knee meniscus repair; carpal tunnel surgery; ag7 - Immunization history:: Client reports receiving the 2nd dose of the Covid vaccine, Flu vaccine is not up to date. Patient has never been vaccinated. - Social history:: Smoking status: Patient denies any tobacco usage or history of. ROS: 13:55 Constitutional: Negative for fever, and chills. Eyes: Negative for injury, pain, ms3 redness, and discharge, ENT: Negative for injury, pain, and discharge, Neck: Negative for injury, pain, and swelling, Cardiovascular: Negative for chest pain, and palpitations. Respiratory: Negative for shortness of breath, cough, wheezing, and pleuritic chest pain, Abdomen/GI: Negative for abdominal pain, nausea, vomiting, diarrhea, and constipation, Back: Negative for injury and pain, MS/Extremity: Negative for injury and deformity, Psych: Negative for depression, anxiety, suicide ideation, homicidal ideation, and hallucinations. 13:55 Skin: Positive for Adhesive on right hand. 13:55 All other systems are negative. Exam: 13:55 Constitutional: This is a well developed, well nourished patient who is awake, alert, ms3 and in no acute distress. Head/Face: Normocephalic, atraumatic. Chest/axilla: Normal chest wall appearance and motion. Nontender with no deformity. Cardiovascular: Regular rate and rhythm with a normal S1 and S2. No gallops, murmurs, or rubs. Normal PMI, no JVD. No pulse deficits. Respiratory: Lungs have equal breath sounds bilaterally, clear to auscultation and percussion. No rales, rhonchi or wheezes noted. No increased work of breathing, no retractions or nasal flaring. Psych: Awake, alert, with orientation to person, place and time. Behavior, mood, and affect are within normal limits. 13:55 Skin: Adhesive covering majority of right hand.. Vital Signs: 12:52 BP 154 / 89; Pulse 82; Resp 16 S; Temp 97.0(O); Pulse Ox 100% on R/A; Weight 65.77 kg ag7 (R); Height 5 ft. 2 in. (157.48 cm) (R); Pain 5/10; 12:52 Body Mass Index 26.52 (65.77 kg, 157.48 cm) ag7 MDM: 12:58 Patient medically screened. ms3 13:55 Differential diagnosis: 1st degree anne, Tissue adhesive right hand. Data reviewed: ms3 vital signs, nurses notes. Counseling: I had a detailed discussion with the patient and/or guardian regarding: the historical points, exam findings, and any diagnostic results supporting the discharge/admit diagnosis, the need for outpatient follow up, to return to the emergency department if symptoms worsen or persist or if there are any questions or concerns that arise at home. ED course: Discussed physical exam findings with patient. Patient to follow-up with primary care physician in 2 to 3 days. Patient understands and agrees with plan. All questions were answered. Return precautions discussed include worsening symptoms, or any other concerns. On reevaluation patient's hand improved after applying petroleum jelly to right hand. No signs of compartment syndrome were present.. Administered Medications: No medications were administered Disposition Summary: 01/25/22 13:52 Discharge Ordered Location: Home ms3 Condition: Stable ms3 Diagnosis - skin irritation ms3 - Dermabond adhered to skin ms3 - right hand pain ms3 Followup: ms3 - With: Demetria Álvarez DO - When: 2 - 3 days - Reason: Discharge Instructions: - Discharge Summary Sheet ms3 - Quick-Bonding Glue Injury ms3 Forms: - Medication Reconciliation Form ms3 - Thank You Letter ms3 - Antibiotic Education ms3 - Prescription Opioid Use ms3 Signatures: Luis Heck DO DO ms3 Sima Iyer RN RN ag7
[2022-01-25 14:15] VITALS: BP 154/89; TEMP 97; O2SAT 100
== END 2022-01-25 14:06 | disposition home or self-care (01) ==
LOC: ER 12:43
DX: L98.8 Other specified disorders of the skin and subcutaneous tissue (principal); F32.A Depression, unspecified
CPT/HCPCS: 99283